=== PATIENT | male | born 1995 | race Caucasian/White ===

== ENCOUNTER 2018-05-19 04:28 | Emergency (ER) | payer OTHER ==
[2018-05-19 04:52] VITALS: PULSE 71; BMI 27.2
[2018-05-19] MEDS ORDERED: ONDANSETRON 4 MG/2 ML VIAL IVPUSH ONE (05:03)
[2018-05-19] MEDS ORDERED: morphine CARPU-JECT 4 MG/1 ML DISP.SYRIN IVPUSH ONE (05:03)
[2018-05-19] MEDS ORDERED: SODIUM CHLORIDE 1,000 ML IV STA (05:03)
--- NOTE | 2018-05-19 05:04 | PDOC ---
History of Present Illness - General Chief Complaint: Pain Stated Complaint: ABDOMINAL PAIN Time Seen by Provider: 05/19/18 04:46 History Source: Patient, Old Records Exam Limitations: Language Barrier ([employer] interpreter translator #[id number] used for translation) - History of Present Illness Travel History: No Initial Comments: 05/19/18 04:59 HISTORY OF PRESENT ILLNESS: 23-year-old male who denies medical history presents emergency Department with 1 day of epigastric and right upper quadrant pain. Patient states the pain started yesterday morning when he awoke slowly progressed throughout the day. He states right now his pain is at high as been rating the pain a 9/10 and describes as sharp. Patient tried taking over-the- counter Zantac with minimal relief of symptoms. Patient is at able to identify any aggravating or alleviating factors. Patient denies any fevers, chills, chest pain, shortness of breath, nausea, vomiting, diarrhea. Patient does report having one episode of loose stool earlier today. No recent travel or sick contacts. PAST MEDICAL HISTORY: Denies past medical history SURGICAL HISTORY: appendectomy Social History: Denies tobacco and illicits. Occasional EtOH. 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 ALLERGIES: No known drug allergies REVIEW OF SYSTEMS General/Constitutional: Denies fever or chills. Denies weakness, weight change. HEENT: Denies change in vision. Denies ear pain or discharge. Denies sore throat. Cardiovascular: Denies chest pain or shortness of breath. Respiratory: Denies cough, wheezing, or hemoptysis. Gastrointestinal: Denies nausea, vomiting, diarrhea or constipation. Denies rectal bleeding. +Upper abdominal pain. Genitourinary: Denies dysuria, frequency, or change in urination. Musculoskeletal: Denies joint or muscle swelling or pain. Denies neck or back pain. Skin and breasts: Denies rash or easy bruising. Neurologic: Denies headache, vertigo, loss of consciousness, or loss of sensation. Psychiatric: Denies depression or anxiety. Endocrine: Denies increased thirst. Denies abnormal weight change. Hematologic/Lymphatic: Denies anemia, easy bleeding, or history of blood clots. Allergic/Immunologic: Denies hives or skin allergy. Denies latex allergy. PHYSICAL EXAM General Appearance: Well-appearing, appropriately dressed. No apparent distress , no intoxication. HEENT: EOMI, PERRLA, normal ENT inspection, normal voice, TMs normal, pharynx normal. No conjunctival pallor. No photophobia, scleral icterus. Neck: Supple. Trachea midline. No tenderness, rigidity, carotid bruit, stridor , lymphadenopathy, or thyromegaly. Respiratory/Chest: Lungs CTAB. No shortness of breath, chest tenderness, respiratory distress, accessory muscle use. No crackles, rales, rhonchi, stridor , wheezing, dullness Cardiovascular: RRR. S1, S2. No JVD, murmur, bradycardia, tachycardia. Vascular Pulses: Dorsalis-Pedis (R): 2+, Dorsalis-Pedis (L): 2+ Gastrointestinal/Abdominal: Normal bowel sounds. Abdomen soft, non-distended. No rebound tenderness. No organomegaly, pulsatile mass, guarding, hernia, hepatomegaly, splenomegaly. Tender in epigastrum and RUQ. Lymphatic: No adenopathy, tenderness. Musculoskeletal/Extremities: Normal inspection. FROM of all extremities, normal capillary refill. Pelvis Stable. No CVA tenderness. No tenderness to extremities, pedal edema, swelling, erythema or deformity. Integumentary: Appropriate color, dry, warm. 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 Fully oriented, alert. Appropriate mood/affect. Motor strength 5/5. No appreciable EOM palsy, facial droop or sensory deficit. Past History - Past Medical History Allergies/Adverse Reactions: Allergies Allergy/AdvReac Type Severity Reaction Status Date / Time No Known Allergies Allergy Verified 05/19/18 04:51 Home Medications: Ambulatory Orders Diphenhydramine HCl [Benadryl -] 25 mg PO Q6H PRN #28 capsule 02/12/16 EPINEPHrine (EPI-PEN 0.3MG) [Epipen 0.3MG -] 0.3 mg IM ASDIR PRN #2 pens Ranitidine HCl [Zantac] 150 mg PO BID PRN #20 tablet 02/12/16 predniSONE [Deltasone -] 60 mg PO DAILY #12 tablet 02/12/16 - Suicide/Smoking/Psychosocial Hx Smoking History: Never smoked Have you smoked in the past 12 months: No Information on smoking cessation initiated: No Hx Alcohol Use: Yes Drug/Substance Use Hx: No *Physical Exam - Vital Signs Last Vital Signs Temp Pulse Resp BP Pulse Ox 98.0 F 71 19 131/82 99 05/19/18 04:47 05/19/18 04:47 05/19/18 04:47 05/19/18 04:47 05/19/18 04:47 ED Treatment Course - LABORATORY CBC & Chemistry Diagram: 05/19/18 05:15 05/19/18 05:15 Medical Decision Making - Medical Decision Making 05/19/18 05:06 A/P: 23-year-old male with epigastric and right upper quadrant pain for one day Normoactive bowel sounds Tenderness to epigastrium and right upper quadrant Lower abdomen nontender without rebound tenderness or McBurney's point tenderness. No CVA tenderness elicited DDx: Pancreatitis, cholecystitis, choledocholithiasis, [place], gastritis, gastroenteritis Less likely [place] given pt's age or GERD as patient has tried [id number] treatment with no relief of symptoms. urine, labs, IVF, morphine, Zofran, EKG 05/19/18 05:40 EKG: Sinus rhythm with rate of 72. Normal intervals noted. No ST depressions, ST elevations or T-wave inversions noted. 05/19/18 06:23 Laboratory testing is unremarkable. Pain levels currently 5/10. I'll sign this patient out to DISHA Mast for continued evaluation. *DC/Admit/Observation/Transfer Diagnosis at time of Disposition: Upper abdominal pain - Discharge Dispostion Condition at time of disposition: Fair - Referrals - Patient Instructions - Post Discharge Activity
[2018-05-19] MEDS ORDERED: morphine SULFATE 4 MG/ML VIAL ONE (05:19)
[2018-05-19] MEDS ORDERED: ONDANSETRON 4 MG/2 ML VIAL ONE (05:20)
[2018-05-19 05:23] LABS: BASO % 1.1 % (0-2.0); EOS % 3.2 % (0-4.5); HEMATOCRIT 43.2 % (35.4-49); HEMOGLOBIN 14.5 GM/dL (11.7-16.9); LYMPH % 21.7 % (8-40); MCH 30.5 pg (25.7-33.7); MCHC 33.5 g/dl (32.0-35.9); MEAN PLT VOLUME 8.4 fl (7.5-11.1); MONO % 9.9 % (3.8-10.2); NEUT % 64.1 % (42.8-82.8); PLATELET COUNT 298 K/MM3 (134-434); RBC 4.74 M/mm3 (4.00-5.60); RDW 12.9 % (11.9-15.9); WHITE BLOOD COUNT 6.6 K/mm3 (4.0-10.0)
--- NOTE | 2018-05-19 05:24 | PDOC ---
*Physical Exam - Vital Signs Last Vital Signs Temp Pulse Resp BP Pulse Ox 98.0 F 71 19 131/82 99 05/19/18 04:47 05/19/18 04:47 05/19/18 04:47 05/19/18 04:47 05/19/18 04:47 - Physical Exam Comments: 05/19/18 05:21 afebrile no jaundice/pallor op clear s1s2 rrr, ctab soft/nd. tender with guarding RUQ/epigastric region. no rebound, normal BS no cvat on bedside sono, ? gallbladder sludge but no obvious stone or wall thickening Heart Score/ECG Review #1 ECG reviewed & interpreted by me at: 05:41 General ECG Interpretation: Sinus Rhythm, Normal Rate (72), Normal Intervals ( qtc 407), No acute ischemic changes ED Treatment Course - LABORATORY CBC & Chemistry Diagram: 05/19/18 05:15 05/19/18 05:15 Medical Decision Making - Medical Decision Making 05/19/18 05:22 Patient seen and evaluated with the nurse practitioner. I agree with the overall evaluation, assessment, and management with the following summary of visit: Healthy 23-year-old male with a distant history of appendectomy at age 8 presents with 1 day of progressive upper abdominal discomfort associated with anorexia, increased pain this evening. One episode of loose nonbloody stool, otherwise no diarrhea or vomiting. No fevers or chills. No history of postprandial abdominal pain. No excessive NSAID or alcohol use. Presentation most consistent with dyspepsia/gastritis versus biliary colic versus pancreatitis, less likely lower GI etiology. Not consistent with cardiopulmonary or etiology. Labs, EKG Pain control, nausea control, IV fluids Took antacid at home Right upper quadrant ultrasound. If tenderness persists and if ultrasound normal , with check CT of the abdomen and pelvis Reassess *DC/Admit/Observation/Transfer Diagnosis at time of Disposition: Upper abdominal pain - Discharge Dispostion Condition at time of disposition: Fair - Referrals - Patient Instructions - Post Discharge Activity
[2018-05-19 05:41] LABS: ANION GAP 8 MMOL/L (8-16); BILIRUBIN,TOTAL 0.7 mg/dL (0.2-1.0); BLOOD UREA NITROGEN 16 mg/dL (7-18); CHLORIDE 104 mmol/L (98-107); CO2 28 mmol/L (21-32); CREATININE 0.8 mg/dL (0.7-1.3); GLUCOSE,RANDOM 105 mg/dL (74-106); LIPASE 94 U/L (73-393); POTASSIUM 4.8 mmol/L (3.5-5.1); SGOT/AST 25 U/L (15-37); SGPT/ALT 33 U/L (12-78); SODIUM 140 mmol/L (136-145); TOT PROT 7.3 g/dl (6.4-8.2)
[2018-05-19 05:42] LABS: ALK PHOS 74 U/L (45-117)
[2018-05-19 05:59] LABS: URINE APPEARANCE CLEAR; URINE BILIRUBIN NEGATIVE (<2.0 mg/dL); URINE COLOR STRAW; URINE GLUCOSE (UA) NEGATIVE (NEGATIVE); URINE KETONE NEGATIVE (NEGATIVE); URINE LEUK ESTERASE NEGATIVE (NEGATIVE); URINE NITRITE NEGATIVE (NEGATIVE); URINE PROTEIN NEGATIVE (NEGATIVE); URINE UROBILINOGEN NEGATIVE mg/dL (0.2-1.0)
--- NOTE | 2018-05-19 08:03 | PDOC ---
ED Treatment Course - LABORATORY CBC & Chemistry Diagram: 05/19/18 05:15 05/19/18 05:15 - ADDITIONAL ORDERS Additional order review: Laboratory Results 05/19/18 05/19/18 05/19/18 05:50 05:15 05:15 Sodium 140 Potassium 4.8 Chloride 104 Carbon Dioxide 28 Anion Gap 8 BUN 16 Creatinine 0.8 Creat Clearance w eGFR > 60 Random Glucose 105 Calcium 9.0 Total Bilirubin 0.7 AST 25 ALT 33 Alkaline Phosphatase 74 Creatine Kinase 198 Creatine Kinase Index 0.7 CK-MB (CK-2) 1.51 Troponin I < 0.02 Total Protein 7.3 Albumin 4.0 Lipase 94 Urine Color Straw Urine Appearance Clear Urine pH 7.0 Ur Specific [place] 1.006 Urine Protein Negative Urine Glucose (UA) Negative Urine Ketones Negative Urine Blood Negative Urine Nitrite Negative Urine Bilirubin Negative Urine Urobilinogen Negative Ur Leukocyte Esterase Negative 05/19/18 05:15 RBC 4.74 MCV 91.0 MCHC 33.5 RDW 12.9 MPV 8.4 Neutrophils % 64.1 Lymphocytes % 21.7 Monocytes % 9.9 Eosinophils % 3.2 Basophils % 1.1 - Medications Given in the ED: ED Medications Discontinued Medications Generic Name Dose Route Start Last Admin Trade Name Freq PRN Reason Stop Dose Admin Sodium Chloride 1,000 mls @ 1,000 mls/hr 05/19/18 05:03 05/19/18 05:34 Normal Saline - IV 05/19/18 06:02 1,000 mls/hr ASDIR STA Administration Morphine Sulfate 4 mg 05/19/18 05:03 05/19/18 05:34 Morphine Injection - IVPUSH 05/19/18 05:04 4 mg ONCE ONE Administration Ondansetron HCl 4 mg 05/19/18 05:03 05/19/18 05:35 Zofran Injection IVPUSH 05/19/18 05:04 4 mg ONCE ONE Administration Progress Note - Progress Note Progress Note: I have received report from SINCERE Foreman regarding this patient. Pt's initial chief complaint: epigastric TTP Pt's work up completed prior to sign out: labs Pt treatment given from prior staff: IV morphine Pt plan to be completed: Awaiting gallbladder ultrasound Dispo: Pending Medical Decision Making - Medical Decision Making A/P: 23 y/o afebrile male with epigastric pain. Labs completely normal including liver enzymes. Waiting for gallbladder ultrasound Gallbladder ultrasound IMPRESSION: Normal gallbladder Gave patient results. He states he does feel better. Will discharge to home with rx for pepcid, carafate, protonix and referral for GI. Suggested he follow GERD diet and return to the ER with any worsening or concerning symptoms. The patient verbalizes understanding of all instructions, has no further questions and is awaiting discharge. *DC/Admit/Observation/Transfer Diagnosis at time of Disposition: Upper abdominal pain, GERD (gastroesophageal reflux disease) - Discharge Dispostion Disposition: HOME Condition at time of disposition: Improved - Referrals Referrals: Aldo Palmer MD [Staff Physician] - - Patient Instructions Printed Discharge Instructions: GERD Diet, DI for Gastroesophageal Reflux Disease (GERD), DI for Epigastric Pain Additional Instructions: Discharge Instructions: -3 prescriptions have been sent to your pharmacy; please take as prescribed -Call Dr. Palmer tomorrow to schedule follow up appointment -Follow recommended diet until your appointment with Dr. Palmer -Return to the ER with any worsening or concerning symptoms Discharge Instructions: -3 prescriptions have been sent to your pharmacy; please take as prescribed -Call Dr. Palmer tomorrow to schedule follow up appointment -Follow recommended diet until your appointment with Dr. Palmer -Return to the ER with any worsening or concerning symptoms Print Language: AMHARIC - Post Discharge Activity
[2018-05-19 08:21] VITALS: BP 117/68; TEMP 97.8
--- NOTE | 2018-05-19 09:01 | EKG ---
Test Reason : Blood Pressure : / mmHG Vent. Rate : 072 BPM Atrial Rate : 072 BPM P-R Int : 150 ms QRS Dur : 098 ms QT Int : 372 ms P-R-T Axes : 067 061 033 degrees QTc Int : 407 ms NORMAL SINUS RHYTHM NORMAL ECG NO PREVIOUS ECGS AVAILABLE Confirmed by JUAN DIEGO NUNEZ MD ([id number]) on 05/19/2018 9:01:37 AM Referred By: Confirmed By:JUAN DIEGO NUNEZ MD
== END 2018-05-19 10:22 | disposition home or self-care (01) ==
LOC: JER 04:28
PROC: 3E033GC Introduction of Other Therapeutic Substance into Peripheral Vein, Percutaneous Approach (ICD-10-PCS; principal; 2018-05-19)
PROC: 3E033NZ Introduction of Analgesics, Hypnotics, Sedatives into Peripheral Vein, Percutaneous Approach (ICD-10-PCS; 2018-05-19)
DX: K21.9 Gastro-esophageal reflux disease without esophagitis (principal)
CPT/HCPCS: 36415; 76705-TC; 80053; 81003; 82550; 82553; 83690; 84484; 85025; 93005; 93010; 96374; 96375; 99283-25; J7030

== ENCOUNTER 2022-05-30 17:32 | Emergency (ER) | payer OTHER ==
[2022-05-30 17:42] VITALS: BP 141/77; PULSE 77; RESP 20; TEMP 99.1; BMI 25.1
[2022-05-30] MEDS ORDERED: IBUPROFEN 600 MG TABLET (FP) PO ONE ×2 (17:54→17:57)
== END 2022-05-30 19:07 | disposition home or self-care (01) ==
LOC: FER 17:32
DX: S93.402A Sprain of unspecified ligament of left ankle, initial encounter (principal); X50.0XXA Overexertion from strenuous movement or load, initial encounter
CPT/HCPCS: 73610-TC-LT-FY; 73630-TC-LT; 99283-25

== ENCOUNTER 2023-01-18 05:34 | Emergency (ER) | payer OTHER ==
[2023-01-18 05:44] VITALS: BP 117/80; PULSE 81; RESP 16; TEMP 98; BMI 34.4
[2023-01-18] MEDS ORDERED: DIPHTH,PERTUSS(ACELL),TET 0.5 ML DISP.SYRIN IM ONE ×2 (07:17→07:24)
== END 2023-01-18 07:43 | disposition home or self-care (01) ==
LOC: JER 05:34
PROC: 3E0234Z Introduction of Serum, Toxoid and Vaccine into Muscle, Percutaneous Approach (ICD-10-PCS; principal; 2023-01-18)
PROC: 3E0234Z Introduction of Serum, Toxoid and Vaccine into Muscle, Percutaneous Approach (ICD-10-PCS; 2023-01-18)
DX: Z11.52 Encounter for screening for COVID-19 (principal); Z23 Encounter for immunization
CPT/HCPCS: 0241U-QW; 90715; 99283-25

== ENCOUNTER 2024-02-17 10:11 | Emergency (ER) | payer OTHER ==
[2024-02-17 10:25] VITALS: BP 131/92; PULSE 85; RESP 20; TEMP 98.2; BMI 31.5
[2024-02-17] MEDS ORDERED: ACETAMINOPHEN 325 MG TABLET (FP) ONE (10:37)
[2024-02-17] MEDS: ACETAMINOPHEN 500 MG TABLET (FP) PO ONE (10:40)
[2024-02-17] MEDS: IBUPROFEN 600 MG TABLET (FP) PO ONE (10:50)
[2024-02-17] MEDS ORDERED: IBUPROFEN 600 MG TABLET (FP) PO ONE (10:51)
== END 2024-02-17 12:20 | disposition home or self-care (01) ==
LOC: FER 10:11
DX: S42.202A Unspecified fracture of upper end of left humerus, initial encounter for closed fracture (principal); X50.0XXA Overexertion from strenuous movement or load, initial encounter
CPT/HCPCS: 71046-TC-FY; 73030-TC-LT-FY; 99283-25